=== PATIENT | male | born 1990 | race Caucasian/White ===

== ENCOUNTER → 2016-12-08 | Outpatient (CLI) | payer SELFPAY ==
--- NOTE | 2016-12-09 12:07 | DI ---
RIGHT RIB SERIES WITH PA CHEST X-RAY, 12/08/2016 5:14 PM: Clinical History: Right-sided chest wall pain. PA Chest: Previous Exam: 03/03/2013. There is no acute soft tissue or bony abnormality. Heart size is normal. Lungs are clear. Mediastinal structures are normal. Right Rib Series: There is no rib fracture noted. The visualized portions of the lung are clear. Reading: Normal PA chest x-ray with normal right rib series.
== END ==
LOC: RAD 18:16
PROVIDERS: ATTEND Physician Assistant
DX: R07.89 Other chest pain (principal); W10.8XXA Fall (on) (from) other stairs and steps, initial encounter
CPT/HCPCS: 71101

== ENCOUNTER 2016-12-18 14:37 | Emergency (ER) | payer SELFPAY ==
[2016-12-18] MEDS ORDERED: Sodium Chloride 0.9% 1,000 ML PRIMARY IV ONE (14:50)
[2016-12-18] MEDS ORDERED: ONDANSETRON 4 MG/2 ML VIAL IVP ONE (14:50)
[2016-12-18] MEDS ORDERED: KETOROLAC 30 MG/1 ML VIAL IVP ONE (14:50)
--- NOTE | 2016-12-18 14:55 | PDOC ---
Gen Adult / Medical Screen HPI - General Chief Complaint: General Medical Stated Complaint: R RIB AND SIDE PAIN Date Seen by Provider: 12/18/16 Time Seen by Provider: 14:51 Source: POSITIVE: Patient Exam Limitations: POSITIVE: No limitations Nurse's Notes Reviewed & Considered: Yes - Indicators Temperature Between 95 and 101 Degrees: Yes Respirations Between 12 and 20: Yes Blood Pressure Between 100-165 (sys) and 60-100 (gant): Yes Pulse Range Between 60-105 (100 for age > 60 years): Yes Severe Pain (Greater than 5/10 Reported): Yes (r ribs) Chest or Abdominal Pain: Yes Inability to Walk: No Pt Reports Active High Risk Cond. (TB/Hepatitis/HIV/Chemo): No Abnormal Mental Status: No - History of Present Illness Initial Comments: Patient comes in today for evaluation of right rib pain. Initially patient fell on December 02 down 5 steps. He was seen on December 08 where chest x-ray was performed that showed no acute fractures no acute cardiopulmonary decompensation. He comes in today because he said increasing pain, out of hydrocodone, taking ibuprofen which he feels has not worked, he has quit taking Flexeril because it makes him feel drowsy. He denies any fever chills or sweats , nausea vomiting or diarrhea, no headache, he does have right-sided rib pain and associated shortness of breath with deep respiration. Body Location Affected: REPORTS: Chest Timing: REPORTS: Constant Duration: >1 week Similar Symptoms Previously: Yes Recent Care Received: REPORTS: Recently Seen, Treated by MD Any Prior Injuries Related to Current Complaint?: No - Patient Home Medications Home Medications: Home Medications Ibuprofen 200 mg PO Q6H PRN 12/18/16 - Patient Allergies Allergies/Adverse Reactions: Allergies Allergy/AdvReac Type Severity Reaction Status Date / Time No Known Allergies Allergy Verified 12/18/16 14:44 Past Medical History - heen HEENT History: Denies History Cardiovascular History: Denies History Respiratory History: Denies History Gastrointestinal History: Denies History Genitourinary History: Denies History Endocrine History: Denies History Musculoskeletal History: Denies History Prosthesis or Implant: No Neurological History: Denies History Blood Disorders: Denies History Psychiatric History: Denies History History of Sexually Transmitted Diseases: No Cancer History: Denies History History of MDRO: No History of Other Communicable Diseases: No Alcohol Use: Occasionally Substance Use Type: Methamphetamines, Other (please comment) (pain pills "Oxy 10s") Previous Surgical History: Yes Type / Date of Surgery: RIGHT 5TH FINGER SURGERY FOR TENDON INJURY. Anesthesia Reactions: No Malignant Hyperthermia: No Significant Family History: No pertinent family hx ROS - Limitations ROS Limitations: No Limitations Constitution: REPORTS: Denies Symptoms Cardiovascular: REPORTS: Chest Pain (Right lateral and posterior rib pain) Respiratory: REPORTS: Hurts To Breathe Neurological: REPORTS: Denies Neuro Symptoms Gastrointestinal: REPORTS: Denies GI Symptoms Endocrine: REPORTS: Denies Symptoms Musculoskeletal: REPORTS: Back Pain (Right rib and right posterior thoracic pain ) Genitourinary: REPORTS: Denies Symptoms Eyes: REPORTS: Denies Symptoms ENT: REPORTS: Denies Symptoms Skin: REPORTS: Denies Skin Symptoms Lympathic: REPORTS: Denies Lympathic Symptoms Immunologic: POSITIVE: Denies Symptoms Psychiatric: POSITIVE: Denies Psych Symptoms Gen Adult/Medical Screen Exam - General Appearance General Appearance: POSITIVE: Alert, Cooperative, No Acute Distress, No Evidence of Trauma - HEENT HEENT: POSITIVE: Head Inspection Nml, Eyes Inspection Nml, Ears Inspection Nml, Nose Inspection Nml, PERRL, EOMI - Pupils Pupil Size: 4 mm: Bilateral - Neck Neck: POSITIVE: Normal Inspection - Respiratory Respiratory: POSITIVE: No Respiratory Distress, Breath Sounds Normal, Other ( Mild tenderness to palpation of the right lateral and posterior ribs at the level of T6-7 and 8.) - Cardiovascular Cardiovascular: POSITIVE: Regular Rate & Rhythm, No Murmur, No Gallop, PMI Normal - Abdomen Abdomen: Soft: (All Quadrants), Normal Bowel Sounds: (All Quadrants), Denies Tenderness: (All Quadrants) - Back Back: POSITIVE: Normal Inspection - Neurological / Psychological Mental Status: POSITIVE: Mood Normal, Affect Normal Orientation: POSITIVE: Oriented x 3 - Skin Skin: POSITIVE: Normal Color, Warm, Dry, No Rash - Extremities Extremity: Non-Tender: (All Extremities), Normal ROM: (All Extremities), Normal Inspection: (All Extremities) Gen Adlt/Medical Scrn Progress - Results Reviewed by me Xrays/CTs/US Reviewed by me: Yes Discussed with Radiologist: Yes Lab Results Reviewed: Yes Lab Results:: Laboratory Results 12/18/16 Range/Units 15:00 WBC 6.93 (4.8-10.8) 10^3/uL RBC 5.24 (4.70-6.10) 10^6/uL Hgb 16.0 (14.0-18.0) g/dL Hct 45.6 (42.0-52.0) % MCV 87.0 (80-90) FL MCH 30.5 (27-31) PG MCHC 35.1 (33-37) g/dL RDW Std Deviation 40.5 (39-50) fL RDW Coeff of Tatiana 12.8 (11.5-14.5) % Plt Count 313 (140-350) 10*3/uL MPV 9.5 (7.4-12.2) FL Immature Gran % (Auto) 0.1 (0-5) % Neut % (Auto) 59.0 (50-80) % Lymph % (Auto) 29.1 (10-50) % [place] % (Auto) 9.8 (5-15) % Eos % (Auto) 1.3 (0-8) % Baso % (Auto) 0.7 (0-1) % Immature Gran # (Auto) 0.01 10*3/UL Neut # (Auto) 4.08 10*3/UL Lymph # (Auto) 2.02 10*3/uL [place] # (Auto) 0.68 (0.3-0.8) 10*3/UL Eos # (Auto) 0.09 10*3/UL Baso # (Auto) 0.05 10*3/UL WBC Morphology Comment Normal morphology (NORM) Plt Morphology Comment Normal morphology (NORM) RBC Morph Comment Normal morphology (NORM) Sodium 143 (135-145) meq/L Potassium 3.8 (3.8-5.2) meq/L Chloride 103 (98-112) meq/L Carbon Dioxide 26 (23-33) meq/L Anion Gap 14 (5-20) BUN 11 (7-22) mg/dL Creatinine 0.9 (0.70-1.50) mg/dL Estimated GFR > 60 (>60 ml/min/1.73m(2)) BUN/Creatinine Ratio 12.22 (6-20) Glucose 89 (78-110) mg/dL Calculated Osmolality 293.0 H (267-292) mOsm/kg Calcium 9.9 (8.7-10.7) mg/dL Total Bilirubin 0.6 (0.3-1.2) mg/dL AST 53 (21-57) IU/L ALT 75 H (21-72) IU/L Alkaline Phosphatase 59 (38-126) IU/L C-Reactive Protein 0.6 (0.0-0.9) mg/dL Total Protein 8.0 (6.1-8.0) g/dL Albumin 5.1 H (3.5-4.8) g/dL Globulin 2.9 (2.50-4.10) g/dL Albumin/Globulin Ratio 1.70 (1.3-2.0) mg/g - Patient's Progress Pain Medication Addressed: POSITIVE: Yes Re-Examine Time: 16:43 Status: POSITIVE: Improved MDM / ED Course: Patient was evaluated, an IV started, blood drawn and sent to the lab for studies, CT scan of his chest was obtained. Patient received a liter of normal saline, Toradol, and Zofran. His pain did improve. Laboratory findings are unremarkable, CT scan of his chest shows no acute intrathoracic abnormalities, no acute cardiopulmonary decompensation, no fractures. Assessment: #1 rib pain, most likely related to fall and probable rib separation. #2 possible pleuritis although this is less likely. Next Plan: Discharge home, Tylenol and ibuprofen as needed, ice packs and heat packs. - Consult Counseled: POSITIVE: Patient, RE: Lab Results, RE: Radiology Results, RE: DX, RE : Need for F/U Patient Care Time - Estimated PCT Patient Care Time (In Minutes): 30 Vital Signs - Recent Vital Signs Vital Signs: Vital Signs (Last 8 hours) Temp Pulse Resp BP Pulse Ox 12/18/16 15:14 97.9 F 89 18 132/85 95 - VS Reviewed Vital Signs Reviewed: Yes Discharge Clinical Impression: Chest wall pain Discharge Disposition: Discharged to Home Condition: Stable Patient Instructions Given at Discharge: Chest Wall Pain (ED)
[2016-12-18 15:13] LABS: BASOPHILS # (AUTO) 0.05 10*3/UL; BASOPHILS % (AUTO) 0.7 % (0-1); EOSINOPHILS # (AUTO) 0.09 10*3/UL; EOSINOPHILS % (AUTO) 1.3 % (0-8); HEMATOCRIT 45.6 % (42.0-52.0); LYMPHOCYTES # (AUTO) 2.02 10*3/uL; MEAN CORPUSCULAR HEMOGLOBIN 30.5 PG (27-31); MEAN CORPUSCULAR HGB CONC 35.1 g/dL (33-37); MEAN PLATELET VOLUME 9.5 FL (7.4-12.2); MONOCYTES # (AUTO) 0.68 10*3/UL (0.3-0.8); MONOCYTES % (AUTO) 9.8 % (5-15); NEUTROPHILS # (AUTO) 4.08 10*3/UL; RED BLOOD COUNT 5.24 10^6/uL (4.70-6.10)
[2016-12-18 15:16] LABS: PLATELET MORPHOLOGY COMMENT NORMAL MORPHOLOGY (NORM); RBC MORPHOLOGY COMMENT NORMAL MORPHOLOGY (NORM); WBC MORPHOLOGY COMMENT NORMAL MORPHOLOGY (NORM)
[2016-12-18 15:22] VITALS: RESP 18; TEMP 97.9
[2016-12-18 15:26] LABS: BLOOD UREA NITROGEN 11 mg/dL (7-22); BUN/CREATININE RATIO 12.22 (6-20); C-REACTIVE PROTEIN 0.6 mg/dL (0.0-0.9); CALCIUM 9.9 mg/dL (8.7-10.7); EST GLOMERULAR FILTRATION > 60 (>60 ml/min/1.73m(2)); SERUM ALBUMIN 5.1 g/dL (3.5-4.8)
--- NOTE | 2016-12-18 16:35 | DI ---
HISTORY: Fell down stairs 2 weeks ago. Complains of continued pain down his right lower rib with in creased pain on inspiration. COMPARISON: None available. TECHNIQUE: Contiguous helical 3 mm images were obtained from the thoracic inlet through the upper ab domen after IV administration of 100 cc nonionic contrast. Additional images were reconstructed in l dorothy windows with both sagittal and coronal reformats provided. 543 images. FINDINGS: MEDIASTINUM: Thoracic inlet is clear. No suspicious axillary, hilar, or mediastinal adenopathy is s een. The great vessels, heart, and pericardium appear normal. LUNGS/AIRWAYS: A calcified granuloma is noted at the posterior aspect of the right upper lobe. The lungs are clear without evidence of nodule or mass. The central airways are patent. There is no espinoza dence of intrabronchial lesion, bronchiectasis, or airway thickening. PLEURA: No pleural effusions, calcifications, or thickening is present. ABDOMEN: Visualized portions of the upper abdomen are unremarkable. MUSCULOSKELETAL: Bones and extrathoracic soft tissues appear normal. IMPRESSION: 1. No evidence of acute cardiac or pulmonary pathology. No rib fractures seen. No imaging findings to suggest etiology of the patient's symptoms.
== END 2016-12-18 16:50 | disposition home or self-care (01) ==
LOC: ER 14:37
DX: R07.89 Other chest pain (principal); R07.81 Pleurodynia
CPT/HCPCS: 71260; 80053; 85025; 86140; 96361; 96374; 96375; 99283 ×2; J1885; J2405; J7030

== ENCOUNTER → 2017-03-27 | Outpatient (CLI) | payer SELFPAY ==
--- NOTE | 2017-03-27 09:44 | DI ---
CERVICAL SPINE SERIES, 03/27/2017 9:09 AM: Clinical History: Neck pain. Previous Exam: None at this facility. 5 routine upright views are submitted. The vertebral bodies are normal in height and size. The disc s paces are normal. Posterior alignment and lateral masses are normal. C1 articulates normally with C2 and the occiput. Prevertebral soft tissue planes are normal. Reading: Normal cervical spine series.
== END ==
LOC: MOB RAD 09:11
PROVIDERS: ATTEND Physician Assistant
DX: M54.2 Cervicalgia (principal); Y93.H3 Activity, building and construction; Y92.69 Other specified industrial and construction area as the place of occurrence of the external cause; Y99.0 Civilian activity done for income or pay
CPT/HCPCS: 72050

== ENCOUNTER 2017-03-29 13:48 | Emergency (ER) | payer SELFPAY ==
[2017-03-29 14:02] VITALS: RESP 16; TEMP 98
--- NOTE | 2017-03-29 16:13 | PDOC ---
Neck Pain / Injury HPI - General Chief Complaint: Neck / Back Complaint Stated Complaint: NECK AND SHOULDER PAIN Date Seen by Provider: 03/29/17 Time Seen by Provider: 14:00 Source: POSITIVE: Patient Exam Limitations: POSITIVE: No limitations Nurse's Notes Reviewed & Considered: Yes - History of Present Illness Initial Comments: The patient is a 26-year-old male who presents to the emergency department with continued left-sided neck pain. He states that he was using a jackhammer approximately 2 weeks ago when he had onset of pain in the left side of his neck. This is progressively worsened. He states that his neck feels stiff and he has trouble flexing and extending his neck. He is able to turn to either side without too much difficulty. The pain originates in the left side of his neck and radiates down into his left shoulder and left upper arm. He also reports numbness and tingling in the left little and ring fingers. He was seen at the walk-in clinic on March 27 and had x-rays of his neck which showed some straightening with no evidence of acute fracture. Hit been prescribed Flexeril as well as [place]. He states that the Flexeril and [place] helps however his pain comes right back when the medication wears off. He has also been taking ibuprofen 600 mg every 4-6 hours. He denies any fevers or chills, prior neck surgery or injury, any other associated complaints. - Patient Home Medications Home Medications: Home Medications Amoxicillin/Potassium Clav [Augmentin 875-125 Tablet] 1 tab PO Q12H #20 tab 12/09 Cyclobenzaprine HCl 10 mg PO TID #20 tab 03/27/17 Hydrocodone Bit/Acetaminophen [[place] 7.5-325 Tablet] 1 tab PO Q4-6H #15 tab 12/09 HYDROcodone/APAP 7.5/325 Tab [[place] 7.5/325 Tab] 1 each PO Q6H PRN #15 tablet 03/29/17 methylPREDNISolone Dose Pack [Medrol Dose Pack] 1 each PO ASDIR #1 pkg 03/29/17 - Patient Allergies Allergies/Adverse Reactions: Allergies Allergy/AdvReac Type Severity Reaction Status Date / Time No Known Allergies Allergy Verified 03/29/17 13:52 Past Medical History - heen HEENT History: Denies History Cardiovascular History: Denies History Respiratory History: Denies History Gastrointestinal History: Denies History Genitourinary History: Denies History Endocrine History: Denies History Musculoskeletal History: Denies History Prosthesis or Implant: No Neurological History: Denies History Blood Disorders: Denies History Psychiatric History: Denies History History of Sexually Transmitted Diseases: No Cancer History: Denies History In Past Year Been Physically Harmed or Verbally Threatened: No History of MDRO: No History of Other Communicable Diseases: No Tobacco Use: Current Every Day Smoker Alcohol Use: Occasionally Substance Use Type: Marijuana, Methamphetamines, Other (please comment) Previous Surgical History: Yes Type / Date of Surgery: RIGHT 5TH FINGER SURGERY FOR TENDON INJURY. Anesthesia Reactions: No Malignant Hyperthermia: No Significant Family History: No pertinent family hx Past Medical History Reviewed: Reviewed - No Changes ROS - Limitations ROS Limitations: No Limitations Constitution: DENIES: Chills, Fever Cardiovascular: REPORTS: Denies Cardiac Symptoms Respiratory: REPORTS: Denies Resp Symptoms Neurological: REPORTS: Numbness (Left little and ring fingers). DENIES: Headache, Weakness Gastrointestinal: REPORTS: Denies GI Symptoms, Nausea (Secondary to pain) Eyes: REPORTS: Denies Symptoms ENT: REPORTS: Denies Symptoms Skin: DENIES: Rash Neck Pain/Injury Exam - General Appearance General Appearance: REPORTS: Alert, Cooperative, No Acute Distress - HEENT HEENT: POSITIVE: Head Inspection Nml, Eyes Inspection Nml, Ears Inspection Nml, Pharynx Inspect. Nml - Neck Neck: POSITIVE: Other (His neck has no visible swelling or erythema, he does have tenderness in the mid and lower portion of his neck extending out onto the left trapezius muscle towards the left shoulder, there is associated muscle spasm) - Back Back: REPORTS: No Vertebral Tenderness - Respiratory / CVS Respiratory / CVS: POSITIVE: Chest Non Tender, Breath Sounds Normal, No Respiratory Distress, Heart Sounds Normal, Regular Rate/Rhythm - Abdomen Abdomen: Soft: (All Quadrants), Denies Tenderness: (All Quadrants), No Distention: (All Quadrants) - Skin Skin: REPORTS: Intact, No Rash - Extremities Additional Extremity Details: Good radial pulse in the left wrist, normal movement of his fingers of the left hand - Neurological / Psychological Neuro / Psych: POSITIVE: Oriented x3, Motor Normal, Other (No focal deficits) Neck Pain/Injury Progress - Patient's Progress MDM / ED Course: The patient was offered an injection of Toradol however he stated that this did not really help him the other day. At this time he is presenting with radicular symptoms to his left arm with associated neck pain after using a jackhammer 2 weeks ago. He had plain film x-rays done 2 days ago which were unremarkable. He will be set up for an MRI of his neck as an outpatient. In addition he was advised that he should follow-up with physical therapy as recommended 2 days ago. He was prescribed a Medrol Dosepak as well as #15 [place] which he can take as needed for pain. He will continue Flexeril as needed for spasm. He is advised return to the emergency room if he develops increased pain, worsening or change in symptoms. He is advised follow-up with the clinic after his MRI - Consult Counseled: POSITIVE: Patient, RE: DX, RE: Need for F/U Patient Care Time - Estimated PCT Patient Care Time (In Minutes): 15 Vital Signs - Recent Vital Signs Vital Signs: Vital Signs (Last 8 hours) Temp Pulse Resp BP Pulse Ox 03/29/17 13:49 98.0 F 105 H 16 134/114 99 - VS Reviewed Vital Signs Reviewed: Yes Discharge Clinical Impression: Neck pain, Cervical radiculopathy Discharge Disposition: Discharged to Home Condition: Stable Prescriptions / Orders: methylPREDNISolone Dose Pack [Medrol Dose Pack] 1 each PO ASDIR #1 pkg HYDROcodone/APAP 7.5/325 Tab [[place] 7.5/325 Tab] 1 each PO Q6H PRN #15 tablet PRN Reason: Pain Patient Instructions Given at Discharge: Cervical Radiculopathy (ED) Additional Instructions: Because of the pain radiating down her left arm and the numbness in your left hand I would recommend obtaining an MRI of the cervical spine to make sure you do not have a herniated disc or something pushing on a nerve. In order for the MRI has been given. You have been given a prescription for a Medrol Dosepak which is a form of prednisone. This is a strong anti-inflammatory. In addition continue Flexeril as needed for pain/spasm. You also were given a prescription for some additional [place] 7.5/325 which he can take one every 6 hours as needed for pain. I do recommend that she do follow-up with physical therapy upon discharge from here as well. Return to the emergency room if increased pain, numbness or weakness, any worsening or change in symptoms. I do recommend that she follow-up with the primary care clinic after your MRI exam for follow-up. Follow Up With: NONE,NONE [Primary Care Provider] -
== END 2017-03-29 14:34 | disposition home or self-care (01) ==
LOC: ER 13:48
DX: M54.12 Radiculopathy, cervical region (principal); M54.2 Cervicalgia; M79.602 Pain in left arm; R20.2 Paresthesia of skin
CPT/HCPCS: 99282